=== PATIENT | female | born 1965 | race Caucasian/White ===

== ENCOUNTER 2018-11-09 12:54 | Outpatient (CLI) | payer BC ==
--- NOTE | 2018-11-09 15:30 | MMO ---
BILATERAL DIGITAL SCREENING MAMMOGRAM: 11/09/18 HISTORY: 52-year-old female presents for digital screening mammography. COMPARISON: 08/18/17, 02/11/14. This patient's mammogram is interpreted with the assistance of computer aided detection. Scattered areas of fibroglandular density are noted bilaterally. There are a few stable areas of pare nchymal density asymmetry in both breasts. No direct or indirect evidence of malignancy. IMPRESSION: BIRADS 2: Benign Finding(s) Routine annual screening mammography (for women over age 40). POS: BETTY
== END 2018-11-09 12:55 | disposition home or self-care (01) ==
LOC: SCSMAMMO 12:54
PROVIDERS: ATTEND Obstetrics & Gynecology
DX: Z12.31 Encounter for screening mammogram for malignant neoplasm of breast (principal)
CPT/HCPCS: 77067

== ENCOUNTER 2020-07-09 12:40 | Outpatient (CLI) | payer BC ==
--- NOTE | 2020-07-09 13:17 | RAD ---
XR Cerv Sp Ap Lat STANDARD History: Cervical spondylosis Comparison: None. Findings: Mild narrowing of the C1-2 interval. The mandible is intact. Mild narrowing of the C3-4 disc space with 1 mm retrolisthesis. Minimal narrowing of the C4-5, C5-6, and C6-7 disc spaces. No acute fracture. Impression: Mild spondylosis cervical spine. No acute osseous abnormality.
--- NOTE | 2020-07-09 13:45 | RAD ---
THORACIC SPINE RADIOGRAPHS THREE VIEWS: 07/09/20 PROVIDED CLINICAL HISTORY: Generalized weakness. FINDINGS: Thoracic alignment appears normal. Vertebral body heights appear preserved. Pedicles appear intact. M ild multilevel thoracic disc degenerative changes are seen. Pedicles appear intact. No lytic or blast ic lesions are evident. IMPRESSION: Mild multilevel disc degenerative change. POS: TONNY
--- NOTE | 2020-07-09 13:46 | RAD ---
LUMBAR SPINE TWO VIEWS: 07/09/20 HISTORY: Generalized weakness, greater on the right side. COMPARISON: 02/27/06. There is moderate rotation to the left of the AP radiograph. Multilevel facet arthrosis changes. No e vidence for significant malalignment. No acute fracture. IMPRESSION: Lumbar spondylosis. POS: OFF
== END 2020-07-09 12:41 | disposition home or self-care (01) ==
LOC: TBSIIMAG 12:40
PROVIDERS: ATTEND Neurological Surgery
DX: M47.12 Other spondylosis with myelopathy, cervical region (principal); M47.16 Other spondylosis with myelopathy, lumbar region; M51.34 Other intervertebral disc degeneration, thoracic region
CPT/HCPCS: 72040; 72072; 72100